=== PATIENT | male | born 1950 | race Caucasian/White ===

== ENCOUNTER 2017-04-13 09:02 | Emergency (ER) | payer OTHER ==
[~2017-04-13] VITALS: Ht 170.2 cm; Wt 102.3 kg
[~2017-04-13 09:02] MED LIST: ASCO-294 PO; ASPI-973 PO; ATRV10T PO; CHOL10008 PO; CYAN10008 PO; GLUC-167 PO; GRAP50CA5 PO; LOSA50TA37 PO; LUTE20TA PO; MILK87.5 PO; NAPR500T PO; OMEG-145 PO
[2017-04-13 09:05] VITALS: BP 134/82; PULSE 50; RESP 22; O2SAT 97
--- NOTE | 2017-04-13 09:20 | ED.REPORT ---
HPI-Abd Pain M 40 and Over Date of Service Apr 13, 2017 ED Provider: Andrew Trammell MD Pt is a 66 y.o. male with a hx of HTN, DM, and HLD who presents to the ED c/o left flank pain onset today. Pt states that he had mild back pain yesterday that resolved, then after waking up this morning he experienced the same pain and began to develop severe left flank pain that he describes as someone "punching him in the kidneys". He states that the pain radiates outward but denies radiation to his scrotum or testicles. He reports associated nausea and constipation, onset 2 days ago. He denies vomiting, fever, shaking, chills, dysuria, chest pain, syncope, and diaphoresis. Pt denies a hx of kidney stones, kidney infection, and recent surgery. He does report a colonoscopy being performed in September 2016. Pt reports taking metformin and naproxen daily. He denies currently taking atenolol or metoprolol. The pt is currently followed by Dr. Baeza. Nursing Notes Stated Complaint: ABDOMINAL PAIN Chief Complaint: Male Abdominal Pain Nursing Notes Reviewed: Yes Allergies: Coded Allergies: No Known Drug Allergies (Verified Allergy, Unknown, 04/13/17) Scheduled Aspirin (Aspirin) 81 Mg Tablet 81 MG PO DAILY Atorvastatin (Lipitor) 10 Mg Tab 10 MG PO DAILY Losartan Potassium (Losartan Potassium) 50 Mg Tablet 50 MG PO BID Scheduled PRN Naproxen (Naprosyn) 500 Mg Tablet 500 MG PO BID PRN PRN For Pain Ondansetron ODT (Ondansetron ODT) 4 Mg Tab.rapdis 4 MG PO TID PRN PRN For Nausea Oxycodone HCl/Acetaminophen 5-325 (Endocet 5-325) 1 Each Tablet 1-2 TABLET PO Q4H PRN PRN For Pain Miscellaneous Medications Ascorbate Calcium (Vitamin C) 500 Mg Tablet 500 MG PO Cholecalciferol (Vitamin D3) (Vitamin D3) 1,000 Unit Tab.chew 1,000 UNIT PO Cyanocobalamin (Vitamin B-12) (Vitamin B-12) 1,000 Mcg Tablet 1,000 MCG PO Glucosamine/D3/Boswellia Erica (Glucosamine Complex Tablet) 1 Each Tablet 1 EACH PO Grape Seed Extract (Grape Seed Extract) 50 Mg Capsule 20 MG PO Lutein (Lutein) 20 Mg Tablet 20 MG PO Milk Thistle Seed Extract (Milk Thistle Extract) 87.5 Mg Capsule 87.5 MG PO [place]-3/Dha/Epa/Fish Oil ([place] 3 500 Softgel) 500 Mg (200 Mg-300 Mg)-1,000 Mg Capsule 1 EACH PO General Time Seen by MD: 09:18 Chief Complaint Flank pain left Hx Obtained From: Patient Arrived By: Walk-in Sudden in Onset?: Yes Onset Occurred: 1 - 4 hours ago Symptom Duration: Since onset Location: : Flank left Quality: Painful Severity: Current: Severe Recent Healthcare: No recent doctor visit, No recent hospitalization Similar Sx Previous: No Past Medical History Past Medical History Arthritis Reports: Diabetes mellitus, Hyperlipidemia, Hypertension Past Surgical History Reports: Carpal tunnel Smoking History Former Smoker Social History Other Social History: Ambulatory Status Independent Review of Systems Constitutional: Denies: Chills, Fever Cardiovascular: Denies: Chest pain, Syncope GI: Reports: Constipation, Nausea, Denies: Vomiting Male: Reports Flank pain, Denies Dysuria, Denies Testicular pain Musculoskeletal: Reports: Back pain Complete sys rev & neg: except as marked. Skin: Denies Diaphoresis Physical Exam Initial Vital Signs Vital Signs (First) Date Time Temp Pulse Resp B/P Pulse Ox O2 Delivery O2 Flow Rate FiO2 04/13/17 09:05 36.2 50 22 134/82 97 Room Air Initial VS: Reviewed Head / Eyes: Atraumatic, Normocephalic, PERRL Extremities: Vascular intact, Neuro intact Skin: Warm, Dry, No cyanosis Neurologic: Alert, Oriented, Nonfocal Psychiatric: Mood/affect normal, Behavior normal, Normal thought content General/Constitutional: Awake, Alert, Well appearing, Well developed, Well hydrated, Well nourished, Not toxic appearing Respiratory / Chest: Atraumatic, Breath sounds NL, Breath sounds = bilat, No respiratory distress Cardiovascular: Heart rate NL, Regular rhythm, Cap refill not delayed, Peripheral circulation NL Heart Sounds / Murmur: Positive: Murmur present... (II/) Abdomen: Atraumatic, Soft, No guarding, No rebound, BS normoactive, No distention, No palpable mass Tenderness/Guarding/Rebound: Positive: Tender flank L Back: Atraumatic, No muscle spasm, No CVA tenderness Flank / Spine / Paraspinal: Positive: Lumbar paraspinal tend... (Low) Interpretation & Diagnostics Lab Results Interpretation Result Diagram: 04/13/17 0940 04/13/17 0940 Test 04/13/17 09:40 04/13/17 09:45 White Blood Count 11.4th/mm3 (3.8-10.1) Red Blood Count 5.08mil/mm3 (4.40-5.80) Hemoglobin 15.7g/dL (13.8-17.2) Hematocrit 45.3% (41.0-50.0) Mean Corpuscular Volume 89.2fL (81-100) Mean Corpuscular Hemoglobin 30.9pg (27.0-35.0) Mean Corpuscular Hemoglobin Concent 34.7% (32.0-37.0) Red Cell Distribution Width 12.6% (12.3-15.4) Platelet Count 214bil/L (150-400) Neutrophils (%) (Auto) 66.9% (40-74) Lymphocytes (%) (Auto) 21.6% (14-46) Monocytes (%) (Auto) 9.5% (4-12) Eosinophils (%) (Auto) 1.2% (0-5) Basophils (%) (Auto) 0.5% (0-3) Sodium Level 140mEq/L (134-144) Potassium Level 4.4mEq/L (3.5-5.2) Chloride Level 103mEq/L (97-108) Carbon Dioxide Level 22mmol/L (18-29) Blood Urea Nitrogen 23mg/dL (8-27) Creatinine 0.91mg/dL (0.76-1.27) Estimat Glomerular Filtration Rate 89mL/min (>59) Glucose Level 132mg/dL (60-99) Calcium Level 9.3mg/dL (8.5-10.1) Magnesium Level 1.9mg/dL (1.6-2.6) Total Bilirubin 0.7mg/dL (0.0-1.2) Aspartate Amino Transf (AST/SGOT) 39U/L (0-50) Alanine Aminotransferase (ALT/SGPT) 47U/L (0-44) Alkaline Phosphatase 86U/L (25-160) Total Protein 7.0g/dL (6.4-8.4) Albumin 4.1g/dL (3.4-5.0) Lipase 29U/L (13-60) Hold Lock Top Tube Received (Received) Urine Color Yellow (YELLOW) Urine Appearance Slightly cloudy Urine pH 5.0 (5.0-8.0) Urine Specific [place] 1.027 (1.003-1.035) Urine Protein Tracemg/dL (NEG,TRACE) Urine Glucose (UA) Negativemg/dL (NEGATIVE) Urine Ketones Negativemg/dL (NEGATIVE) Urine Occult Blood Large (NEGATIVE) Urine Nitrite Negative (NEGATIVE) Urine Bilirubin Negative (NEGATIVE) Urine Urobilinogen Normalmg/dL (NORMAL) Urine Leukocyte Esterase Negative (NEGATIVE) Urine RBC 11-50/hpf (0-2) Urine WBC 0-5/hpf (0-5) Urine Epithelial Cells Few/hpf (NONE-MOD) Urine Crystals Oxalic acid crystals (NONE Urine Bacteria Few/hpf (NONE-FEW) Urine Hyaline Casts None/lpf (NONE) Urine Granular Casts None seen (NONE SEEN) Urine Waxy Casts None seen (NONE SEEN) Urine Red Blood Cell Casts None seen (NONE SEEN) Urine White Blood Cell Casts None seen (NONE SEEN) Urine Mucus Present (None Seen) Urine Trichomonas None seen (NONE SEEN) Urine Yeast None (NONE SEEN) Urinalysis Comment None Urine Culture Reflexed Not indicated ECG Interpretation ECG Interpretation: No ST elevation Time: 10:00 Interpreted by: ED physician Normal ECG Interpretation: Normal rate (58), Normal sinus rhythm, No acute ischemic changes CT Abd / Pelvis Interpretation PROCEDURE: CT KUB ([id number]) IMPRESSION: 1 mm stone at the left UVJ causing minimal to mild left-sided hydronephrosis. Dictated by: Ness Avila MD, PhD on 04/13/2017 at 11:14 Approved by: Ness Avila MD, PhD on 04/13/2017 at 11:18 Re-Eval/Medical Decision Source of Hx: Old records Time of Eval: 10:53 Re-Evaluation/Progress Note: Discussed with patient lab results and need for CT imaging. Pt understands and agrees with plan. Time of Eval: 11:45 Re-Evaluation/Progress Note: Discussed CT imaging and plan for discharge, pt understands and agrees with plan. Counseled Regarding: Diagnosis, Lab results, Need for follow-up, When/why to return to ED Discharge & Departure Primary Impression: Ureteral stone Disposition: Home Vital Signs - All Vital Signs Date Time Temp Pulse Resp B/P Pulse Ox O2 Delivery O2 Flow Rate FiO2 04/13/17 10:24 58 16 118/68 99 Room Air 04/13/17 09:05 36.2 50 22 134/82 97 Room Air )( All Prior VS Reviewed: Yes Condition: Improved Patient Instructions: Kidney Stones (ED), Ureteral Stones (ED) Additional Instructions: Thank you for entrusting us with your care today. Your CT scan showed a 1mm stone in your left ureter, this is most likely the cause for your flank pain. This stone should pass soon. I will give you a strainer to use to try to catch the stone. Follow-up with the Urologist, call Saturday to schedule an appointment. Drink plenty of fluids. I recommend using Milk of Magnesium as directed and begin Metamucil to add fiber to your diet. I will prescribe you Percocet to take as directed for pain. Do not drink, drive , or consume acetaminophen, while taking Percocet. I will also prescribe you Zofran to take as directed for nausea. Return if you develop a fever, increasing pain, vomiting, or any new por worsneing symptoms. Referrals: Diego Baeza MD (PCP) Nii Calles MD Attestation Portions of this note were transcribed by Ridge Lindsay. I, Dr. Trammell personally performed the history, physical exam and medical decision-making; I reviewed and confirmed the accuracy of the information in the transcribed note. Signed by: Maria Fernanda Jang, 04/13/17 and 1152. copies to: Nii Calles MD; Diego Baeza MD, Donald L MD Apr 13, 2017 09:20 RIDGE LINDSAY Apr 13, 2017 09:27
[2017-04-13] MEDS ORDERED: Ondansetron 2 mg/mL 2 mL Inj IVPUSH PRN (09:30)
[2017-04-13] MEDS ORDERED: 0.9% Sodium Chloride 1,000 ML IV ONE (09:30)
[2017-04-13] MEDS ORDERED: HYDROmorphone 0.5 mg/0.5 mL iSecure Syringe IVPUSH PRN (09:30)
[2017-04-13 09:56] LABS: BASOPHILS % (AUTO) 0.5 % (0-3); EOSINOPHILS % (AUTO) 1.2 % (0-5); MONOCYTES % (AUTO) 9.5 % (4-12); Mean Corpuscular Hemoglobin 30.9 pg (27.0-35.0); Mean Corpuscular Volume 89.2 fL (81-100); NEUTROPHILS % (AUTO) 66.9 % (40-74); Platelet Count 214 bil/L (150-400)
[2017-04-13 10:13] LABS: Magnesium 1.9 mg/dL (1.6-2.6)
[2017-04-13 10:24] VITALS: BP 118/68; PULSE 58; RESP 16; O2SAT 99
[2017-04-13 10:38] LABS: APPEARANCE,URINE SLIGHTLY CLOUDY (CLEAR,HAZY); COLOR,URINE YELLOW (YELLOW); OCCULT BLOOD,URINE LARGE (NEGATIVE); UROBILINOGEN,URINE NORMAL (NORMAL)
--- NOTE | 2017-04-13 11:20 | DRSVH ---
PROCEDURE: CT KUB ([id number]) INDICATIONS: L flank pain and hematuria TECHNIQUE: Noncontrast 5 mm thick sections acquired from the diaphragms to the symphysis. 5 mm thick coronal an d sagittal reformats were then performed. For radiation dose reduction, the following was used: aut omated exposure control, adjustment of mA and/or kV according to patient size. COMPARISON: None. FINDINGS: Image quality: Excellent. Lung bases: Lung bases are clear of acute opacities. Calcified granulomas noted in lung bases. Hea rt size is normal. Urinary system: Both kidneys are normal in size. A 1 mm stone at the left UVJ is noted which is cau sing minimal to mild left-sided hydronephrosis. No right-sided renal stones or hydronephrosis. Blad laura wall thickness is normal; no calcified bladder stones. Other solid organs: Liver and spleen are normal in size. Punctate calcifications noted in the spleen compatible sequela prior granulomatous disease. Gallbladder is within normal limits. Pancreas is no rmal in contours. No adrenal nodules. Peritoneum and bowel: Unenhanced bowel loops demonstrate normal wall thickness and caliber. No free fluid or air. Nodes and vessels: No retroperitoneal or mesenteric adenopathy by size criteria. Aorta and inferior vena cava are normal in caliber. Scattered atherosclerotic calcifications are noted in the abdominal and pelvic vasculature. Abdominal wall: No ventral hernias. Pelvis: No free pelvic fluid. No inguinal hernias or adenopathy. Vasectomy clips noted. Bones: No suspicious bony lesions. No vertebral body compression fractures. Spine degenerative dise ase and facet arthropathy noted. IMPRESSION: 1 mm stone at the left UVJ causing minimal to mild left-sided hydronephrosis. Dictated by: Ness Avila MD, PhD on 04/13/2017 at 11:14 Approved by: Ness Avila MD, PhD on 04/13/2017 at 11:18
[2017-04-13] MEDS ORDERED: ONDA4TAB12 PO (11:50)
[2017-04-13] MEDS ORDERED: OXYC-407 PO (11:50)
[2017-04-13 12:10] VITALS: BP 103/47; PULSE 61; RESP 19; O2SAT 98
== END 2017-04-13 12:13 | disposition home or self-care (01) ==
LOC: SED 09:02
DX: N20.1 Calculus of ureter (principal); E11.9 Type 2 diabetes mellitus without complications; I10 Essential (primary) hypertension; E78.5 Hyperlipidemia, unspecified; Z79.82 Long term (current) use of aspirin; Z79.84 Long term (current) use of oral hypoglycemic drugs; Z87.891 Personal history of nicotine dependence; Z79.899 Other long term (current) drug therapy
CPT/HCPCS: 36415; 74176; 80053; 81000; 83690; 83735; 85025; 93005; 96361; 96374; 96375; 99284; J1170; J2405; J7030